=== PATIENT | female | born 1985 | race Two or more races ===

== ENCOUNTER 2021-01-26 08:18 | Outpatient (CLI) | payer OTHER | END 2021-01-26 08:19 | disposition home or self-care (01) | LOC: LAB 08:18 | PROVIDERS: ATTEND Internal Medicine Cardiovascular Disease | DX: I10 Essential (primary) hypertension (principal); E11.9 Type 2 diabetes mellitus without complications; E03.8 Other specified hypothyroidism; E78.2 Mixed hyperlipidemia; Z12.11 Encounter for screening for malignant neoplasm of colon; N80.8 Other endometriosis; N63.0 Unspecified lump in unspecified breast; E55.9 Vitamin D deficiency, unspecified ==

== ENCOUNTER → 2021-01-26 | Outpatient (CLI) | payer OTHER ==
[~2021-01-26] MED LIST: ADVAIR 2501 DISK W/1 IH; PROVENTIL2.5 MG/3 M IH; SINGULAIR 10MG10 MG PO
== END | disposition home or self-care (01) ==
LOC: TOM 08:00 → RAD 08:30 → MAMO-SONO 09:15
PROVIDERS: ATTEND Internal Medicine Cardiovascular Disease
DX: E03.8 Other specified hypothyroidism (principal); R10.84 Generalized abdominal pain; N63.11 Unspecified lump in the right breast, upper outer quadrant

== ENCOUNTER 2021-05-25 09:05 | Emergency (ER) | payer OTHER ==
[~2021-05-25] VITALS: Ht 162.6 cm; Wt 88.9 kg
[2021-05-25] MEDS ORDERED: TUSSI PRES-B L480 ML PO (12:38)
[2021-05-25] MEDS ORDERED: TESSALON PERLE100 M1 PO (12:38)
[2021-05-25] MEDS ORDERED: AMOX1TAB5 PO (12:38)
== END 2021-05-25 12:51 | disposition home or self-care (01) ==
LOC: ER 09:05
DX: J06.9 Acute upper respiratory infection, unspecified (principal); Z20.822 Contact with and (suspected) exposure to COVID-19